=== PATIENT | female | born 1995 | race Caucasian/White ===

== ENCOUNTER 2018-02-22 16:08 | Emergency (ER) | payer OTHER ==
[~2018-02-22] VITALS: Ht 165.1 cm; Wt 60.0 kg
[~2018-02-22 16:08] MED LIST: Z.0.NO CURRENT MEDS
[2018-02-22 16:20] VITALS: BP 122/75; PULSE 60; RESP 16; TEMP 97.6; O2SAT 99
[2018-02-22] MEDS ORDERED: SODIUM CHLOR 0.9% 1000 ML INJ 1,000 ML IV ONE (17:22)
--- NOTE | 2018-02-22 17:27 | PD ---
HPI Chief Complaint: Syncope/Near-Syncope Time Seen by Provider: 17:05 Travel History International Travel<30 days: No Contact w/Intl Traveler<30days: No Traveled to known affect area: No History of Present Illness HPI 22y female presents to the ED with lightheadedness with vertiginous symptoms, intermittent nausea, and diarrhea that has been present for 1 month. She says she had a syncopal episode yesterday lasting 1 minutes so she decided to come to the emergency department today. She says that she "blacked out" after standing up and fell. She denies actual head trauma however. Says her LMP was December 27 and she believes she is because she had a faintly positive test along with 2 negative tests within the last week. She says that her lightheadedness is worse with standing up and occasionally while walking. It is decreased with sitting. She says that when she has the spinning sensation it lasts approximately 1 minute and goes away. She admits to having intermittent nonbloody diarrhea and constipation for the last month. She says that she has had some leg cramping for about 2 weeks and had spotting 2 days ago that has since stopped. Denies vomiting, fever, chills, vaginal discharge, dysuria. PFSH Past Medical History Medical History: Denies Significant Hx Asthma: No Autoimmune Disease: No Blood Disorders: No Anxiety: No Depression: No Heart Rhythm Problems: No Cardiovascular Problems: No Chest Pain: No Cystic Fibrosis: No Diminished Hearing: No Genitourinary: No Headaches: No Hypertension: No Musculoskeletal: No Psychiatric: No Respiratory: No Seizures: No Sleep Apnea: No ?: LMP: 12/27/2017 Past Surgical History Abdominal Surgery: No Cardiac Surgery: No Ear Surgery: No Endocrine Surgery: No Eye Surgery: No Genitourinary Surgery: No Gynecologic Surgery: No Neurologic Surgery: No Oral Surgery: No Thoracic Surgery: No Tonsillectomy: Yes Social History Alcohol Use: No Tobacco Use: Yes (1/2 ppd) Substance Use: No Allergies-Medications (Allergen,Severity, Reaction): Coded Allergies: No Known Allergies (Verified Allergy, Severe, 02/22/18) Reported Meds & Prescriptions Reported Meds & Active Scripts Active Reported No Current Meds (Miscellaneous Medication) Misc Review of Systems Except as stated in HPI: all other systems reviewed are Neg Physical Exam Narrative GENERAL: Well-developed, well-nourished in no apparent distress SKIN: Focused skin assessment warm/dry. HEAD: Atraumatic. Normocephalic. EYES: Pupils equal and round. No scleral icterus. No injection or drainage. EOMI ENT: No nasal bleeding or discharge. Mucous membranes pink and moist. NECK: Trachea midline. No JVD. No lymphadenopathy CARDIOVASCULAR: Regular rate and rhythm. No murmur appreciated. RESPIRATORY: No accessory muscle use. Clear to auscultation. Breath sounds equal bilaterally. GASTROINTESTINAL: Abdomen soft, non-tender, nondistended. No CVA tenderness MUSCULOSKELETAL: No obvious deformities. No clubbing. No cyanosis. No edema. NEUROLOGICAL: Awake and alert. Cranial nerves II through XII intact. Motor and sensory grossly within normal limits. Five out of 5 muscle strength in all muscle groups. Normal speech. PSYCHIATRIC: Appropriate mood and affect; insight and judgment normal. Data Data Last Documented VS Vital Signs Date Time Temp Pulse Resp B/P (MAP) Pulse Ox O2 Delivery O2 Flow Rate FiO2 02/22/18 18:06 51 125/58 (80) 54 113/58 (76) 51 123/70 (87) 02/22/18 16:33 Room Air 02/22/18 16:20 97.6 16 99 Orders Orders Ed Urine Pregnancytest Poc (02/22/18 17:07) Complete Blood Count With Diff (02/22/18 17:22) Comprehensive Metabolic Panel (02/22/18 17:22) Magnesium (Mg) (02/22/18 17:22) Act Partial Throm Time (Ptt) (02/22/18 17:22) Prothrombin Time / Inr (Pt) (02/22/18 17:22) Urinalysis - C+S If Indicated (02/22/18 17:22) Ecg Monitoring (02/22/18 17:22) Iv Access Insert/Monitor (02/22/18 17:22) Oximetry (02/22/18 17:22) Sodium Chloride 0.9% Flush (Ns Flush) (02/22/18 17:30) Sodium Chlor 0.9% 1000 Ml Inj (Ns 1000 M (02/22/18 17:22) Beta Hcg (Quant/Titer) (02/22/18 17:22) Orthostatic Vital Signs (02/22/18 17:27) Electrocardiogram (02/22/18 16:49) Labs Laboratory Tests Test 02/22/18 17:50 White Blood Count 8.8 TH/MM3 Red Blood Count 4.63 MIL/MM3 Hemoglobin 13.7 GM/DL Hematocrit 38.6 % Mean Corpuscular Volume 83.4 FL Mean Corpuscular Hemoglobin 29.7 PG Mean Corpuscular Hemoglobin Concent 35.5 % Red Cell Distribution Width 13.5 % Platelet Count 254 TH/MM3 Mean Platelet Volume 7.6 FL Neutrophils (%) (Auto) 59.3 % Lymphocytes (%) (Auto) 33.3 % Monocytes (%) (Auto) 6.6 % Eosinophils (%) (Auto) 0.6 % Basophils (%) (Auto) 0.2 % Neutrophils # (Auto) 5.2 TH/MM3 Lymphocytes # (Auto) 2.9 TH/MM3 Monocytes # (Auto) 0.6 TH/MM3 Eosinophils # (Auto) 0.1 TH/MM3 Basophils # (Auto) 0.0 TH/MM3 CBC Comment DIFF FINAL Differential Comment Prothrombin Time 11.0 SEC Prothromb Time International Ratio 1.1 RATIO Activated Partial Thromboplast Time 26.2 SEC Urine Color YELLOW Urine Turbidity CLEAR Urine pH 6.5 Urine Specific [place] 1.012 Urine Protein TRACE mg/dL Urine Glucose (UA) NEG mg/dL Urine Ketones NEG mg/dL Urine Occult Blood NEG Urine Nitrite NEG Urine Bilirubin NEG Urine Urobilinogen LESS THAN 2.0 MG/DL Urine Leukocyte Esterase NEG Urine RBC 1 /hpf Urine WBC LESS THAN 1 /hpf Urine Squamous Epithelial Cells 1 /hpf Urine Mucus FEW /lpf Microscopic Urinalysis Comment CULT NOT INDICATED Blood Urea Nitrogen 7 MG/DL Creatinine 0.76 MG/DL Random Glucose 88 MG/DL Total Protein 8.1 GM/DL Albumin 4.3 GM/DL Calcium Level 9.5 MG/DL Magnesium Level 2.0 MG/DL Alkaline Phosphatase 88 U/L Aspartate Amino Transf (AST/SGOT) 10 U/L Alanine Aminotransferase (ALT/SGPT) 19 U/L Total Bilirubin 1.8 MG/DL Sodium Level 142 MEQ/L Potassium Level 3.6 MEQ/L Chloride Level 104 MEQ/L Carbon Dioxide Level 30.4 MEQ/L Anion Gap 8 MEQ/L Estimat Glomerular Filtration Rate 95 ML/MIN Human Chorionic Gonadotropin, Quant LESS THAN 1 MIU/ML MDM Medical Decision Making Medical Screen Exam Complete: Yes Emergency Medical Condition: Yes Differential Diagnosis Dehydration, ectopic , status, vaginal bleeding, malingering Narrative Course 22y female presents to the ED with lightheadedness with vertiginous symptoms, intermittent nausea, and diarrhea that has been present for 1 month. She says she had a syncopal episode yesterday lasting 1 minutes so she decided to come to the emergency department today. She says that she "blacked out" after standing up and fell. She denies actual head trauma however. Says her LMP was December 27 and she believes she is because she had a faintly positive test along with 2 negative tests within the last week. She says that her lightheadedness is worse with standing up and occasionally while walking. It is decreased with sitting. She says that when she has the spinning sensation it lasts approximately 1 minute and goes away. She admits to having intermittent nonbloody diarrhea and constipation for the last month. She says that she has had some leg cramping for about 2 weeks and had spotting 2 days ago that has since stopped. Denies vomiting, fever, chills, vaginal discharge, dysuria. Vital signs are stable. Physical exam findings demonstrate a well-developed, well-nourished 22-year-old female in no acute distress. Abdomen soft nontender. No CVA tenderness. POC test negative. Labs ordered. CBC & BMP Diagram 02/22/18 17:50 Total Protein 8.1, Albumin 4.3, Calcium Level 9.5, Magnesium Level 2.0, Alkaline Phosphatase 88, Aspartate Amino Transf (AST/SGOT) 10 L, Alanine Aminotransferase (ALT/SGPT) 19, Total Bilirubin 1.8 H HCG negative. Normal saline 1000 mL administered. I discussed the findings with the patient today. She is reassured and she appreciates the care she has received today. She is advised to follow-up with her primary care physician. Diagnosis Primary Impression: Lightheaded Referrals: Primary Care Physician Additional Instructions: Follow up with your primary care physician within 2-3 days. If your symptoms persist or worsen, return to the emergency department. Ensure adequate fluid intake and proper nutrition. Disposition: 01 DISCHARGE HOME Condition: Stable Yue Tate February 22, 2018 17:27
[2018-02-22] MEDS ORDERED: SODIUM CHLORIDE 0.9% FLUSH 10 ML FLUSH IVF PRN (17:30)
[2018-02-22 18:06] VITALS: BP_SYST 113; BP_SYST 123; BP_SYST 125; BP_DIAS 58; BP_DIAS 70
[2018-02-22 18:23] LABS: AUTOMATED NEUTROPHIL # 5.2 TH/MM3 (1.8-7.7); BASOPHIL % 0.2 % (0.0-2.0); EOSINOPHIL # 0.1 TH/MM3 (0-0.4); EOSINOPHIL % 0.6 % (0.0-4.0); HEMATOCRIT 38.6 % (35.0-46.0); HEMOGLOBIN 13.7 GM/DL (11.6-15.3); LYMPH % 33.3 % (9.0-44.0); LYMPHOCYTE # 2.9 TH/MM3 (1.0-4.8); MEAN CELL VOLUME 83.4 FL (80.0-100.0); MEAN CORPUSCULAR HEMOGLOBIN 29.7 PG (27.0-34.0); MEAN CORPUSCULAR HGB CONC 35.5 % (32.0-36.0); MEAN PLATELET VOLUME 7.6 FL (7.0-11.0); MONO % 6.6 % (0.0-8.0); MONOCYTE # 0.6 TH/MM3 (0-0.9); NEUT % 59.3 % (16.0-70.0); PLATELET COUNT 254 TH/MM3 (150-450); RED BLOOD COUNT 4.63 MIL/MM3 (4.00-5.30); RED CELL DISTRIBUTION WIDTH 13.5 % (11.6-17.2); WHITE BLOOD COUNT 8.8 TH/MM3 (4.0-11.0)
[2018-02-22 18:27] LABS: BILIRUBIN, URINE NEG (NEG); BLOOD, URINE NEG (NEG); GLUCOSE,URINE NEG (NEG); KETONE, URINE NEG (NEG); MUCUS URINE FEW /lpf (OCC); NITRITE,URINE NEG (NEG); PH, URINE 6.5 (5.0-8.5); SQUAMOUS EPITHELIAL CELL URINE 1 /hpf (0-5); URINE COLOR YELLOW (YELLW/STRAW); URINE LEUKOCYTE ESTERASE NEG (NEG)
[2018-02-22 18:37] LABS: INTERNATIONAL NORMALIZED RATIO 1.1 RATIO
[2018-02-22 18:47] LABS: ALBUMIN 4.3 GM/DL (3.4-5.0); AST (GOT) 10 U/L (15-37); BICARBONATE 30.4 MEQ/L (21.0-32.0); BLOOD UREA NITROGEN 7 MG/DL (7-18); CALCIUM 9.5 MG/DL (8.5-10.1); CHLORIDE 104 MEQ/L (98-107); CREATININE 0.76 MG/DL (0.50-1.00); GLOMERULAR FILTRATION RATE 95 ML/MIN (>89); GLUCOSE,RANDOM 88 MG/DL (74-106); SODIUM (NA) 142 MEQ/L (136-145)
[2018-02-22 18:52] LABS: ALKALINE PHOSPHATASE 88 U/L (45-117); ALT (GPT) 19 U/L (10-53); TOTAL BILIRUBIN ADULT 1.8 MG/DL (0.2-1.0); TOTAL PROTEIN 8.1 GM/DL (6.4-8.2)
--- NOTE | 2018-02-23 14:06 | EKG ---
Date Performed: 02/22/2018 Time Performed: 16:49:06 PTAGE: 22 years EKG: SINUS BRADYCARDIA WITH SINUS ARRHYTHMIA WITH SHORT OR INTERVAL BORDERLINE ECG NO PREVIOUS TRACING DOCTOR: Berny Martinez Interpretating Date/Time 02/23/2018 14:02:35
== END 2018-02-22 19:39 | disposition home or self-care (01) ==
LOC: NEPD 16:08
DX: R42 Dizziness and giddiness (principal); K59.00 Constipation, unspecified; R19.7 Diarrhea, unspecified; R11.0 Nausea
CPT/HCPCS: 80053; 81001; 83735; 84702; 84703; 85025; 85610; 85730; 93005; 99284; J7030